=== PATIENT | female | born 1985 | race Caucasian/White ===

== ENCOUNTER → 2021-11-24 02:33 | Outpatient (CLI) | payer OTHER, SELFPAY ==
[2021-11-24 23:19] LABS: SARS-CoV-2 RNA PCR Negative
== END ==
PROVIDERS: PCP Internal Medicine; Visit Provider Nurse Practitioner
DX: J02.9 Acute pharyngitis, unspecified (principal); Z20.822 Contact with and (suspected) exposure to COVID-19
CPT/HCPCS: C9803; U0003; U0005

== ENCOUNTER 2022-05-01 16:51 | Outpatient (CLI) | payer OTHER, SELFPAY ==
[2022-05-01 17:36] LABS: Basophils Percent Auto 0.4 % (0.2-1.2); Eosinophils Absolute Auto 0.3 K/mm3 (0-0.3); Eosinophils Percent Auto 4.4 % (0-4.4); Hematocrit 40.6 % (37.0-47.0); Hemoglobin 13.4 g/dL (12.0-15.0); Immature Granulocyte Absolute 0.01 K/mm3 (0.00-0.031); Immature Granulocyte Percent A 0.1 % (0-0.5); Lymphocytes Absolute Auto 1.38 K/mm3 (0.9-3.2); Lymphocytes Percent Auto 19.7 % (18.3-44.2); Mean Corpuscular Hemoglobin 30.2 pg (26-34); Mean Corpuscular Volume 91.6 fl (80-100); Mean Platelet Volume 9.2 fl (7.4-10.4); Monocytes Absolute Auto 0.5 K/mm3 (0.1-0.6); Monocytes Percent Auto 7.4 % (2.6-8.5); Neutrophils Absolute Auto 4.8 K/mm3 (1.3-6.7); Platelet Count Result 325 k/mm3 (150-375); Red Blood Count 4.43 M/mm3 (4.2-5.4); Red Cell Distribution Width 12.9 % (11.5-14.5)
[2022-05-01 17:42] LABS: LDL Cholesterol Direct 86 mg/dL
[2022-05-01 18:59] LABS: Appearance Urine Clear (Clear); Bilirubin Urine Negative (Negative); Blood Urine 1+ (Negative); Color Urine Yellow (Yellow); Glucose Urine UA Negative (Negative); Ketones Urine 1+ mg/dL (Negative); Leukocyte Esterase Ur Negative LEU/UL (Negative); Nitrate Urine Negative (Negative); Protein Urine Negative (Negative); Specific Grav Ur <= 1.005 (1.001-1.035); Urobilinogen Urine 0.2 mg/dL (<2.0)
[2022-05-01 19:14] LABS: Mucus Urine Rare /lpf; RBC Urine 0-2 /hpf (0-2); Squamous Epithelial Cell Urine Rare /hpf (Few); WBC Urine 0-3 /hpf
[2022-05-01 19:16] LABS: Add Urine Microscopic? YES
[2022-05-01 20:18] LABS: Vitamin D 25 Hydroxy 39.5 ng/mL
[2022-05-01 20:47] LABS: Alanine Aminotransferase 70 U/L (6-35); Alkaline Phosphatase 60 U/L (38-126); Anion Gap 10 mmol/L (8-16); Aspartate Amino Transferase 28 U/L (14-36); Bilirubin,Total 0.6 mg/dL (0.2-1.3); Blood Urea Nitrogen 9 mg/dL (7-17); Calcium 9.7 mg/dL (8.4-10.2); Carbon Dioxide 24 mmol/L (22-30); Chloride 104 mmol/L (98-107); Cholesterol 182 mg/dL (0-200); Estimated Glomerular Filt Rate > 60; Glucose 86 mg/dL (65-110); HDL Direct 69 mg/dL; Potassium 3.7 mmol/L (3.4-5.0); Sodium 138 mmol/L (137-145); Triglycerides 52 mg/dL (<150)
[2022-05-01 20:54] LABS: Albumin Level 4.7 g/dL (3.5-5.1)
[2022-05-01 21:07] LABS: Hemoglobin A1C 4.9 % (<5.7)
== END 2022-05-01 16:52 | disposition home or self-care (01) ==
PROVIDERS: PCP Internal Medicine; Visit Provider Clinical Nurse Specialist
DX: R14.0 Abdominal distension (gaseous) (principal); E55.9 Vitamin D deficiency, unspecified; R73.09 Other abnormal glucose; Z13.220 Encounter for screening for lipoid disorders; Z13.228 Encounter for screening for other metabolic disorders
CPT/HCPCS: 36415; 80053; 80061; 81001; 82306; 83036; 85025

== ENCOUNTER 2022-05-02 12:25 | Outpatient (CLI) | payer OTHER, SELFPAY ==
[2022-05-02 13:21] LABS: Alanine Aminotransferase 69 U/L (6-35); Albumin Level 4.9 g/dL (3.5-5.1); Alkaline Phosphatase 67 U/L (38-126); Anion Gap 10 mmol/L (8-16); Aspartate Amino Transferase 40 U/L (14-36); Bilirubin,Total 0.5 mg/dL (0.2-1.3); Blood Urea Nitrogen 10 mg/dL (7-17); Calcium 9.9 mg/dL (8.4-10.2); Carbon Dioxide 25 mmol/L (22-30); Chloride 104 mmol/L (98-107); Estimated Glomerular Filt Rate > 60; Glucose 98 mg/dL (65-110); Potassium 4.1 mmol/L (3.4-5.0); Sodium 139 mmol/L (137-145)
[2022-05-02 13:50] LABS: Thyroid Stimulating Hormone 0.875 uIU/mL (0.465-4.680)
== END 2022-05-02 12:26 | disposition home or self-care (01) ==
PROVIDERS: PCP Internal Medicine; Visit Provider Clinical Nurse Specialist
DX: R74.01 Elevation of levels of liver transaminase levels (principal); F41.9 Anxiety disorder, unspecified
CPT/HCPCS: 36415; 80053; 84443

== ENCOUNTER 2022-05-06 14:02 | Outpatient (CLI) | payer OTHER, SELFPAY ==
[2022-05-06 15:09] LABS: Albumin Level 4.4 g/dL (3.5-5.1); Alkaline Phosphatase 184 U/L (38-126); Anion Gap 7 mmol/L (8-16); Aspartate Amino Transferase 127 U/L (14-36); Bilirubin,Total 0.3 mg/dL (0.2-1.3); Blood Urea Nitrogen 12 mg/dL (7-17); Calcium 8.9 mg/dL (8.4-10.2); Carbon Dioxide 30 mmol/L (22-30); Chloride 102 mmol/L (98-107); Estimated Glomerular Filt Rate > 60; Glucose 130 mg/dL (65-110); Potassium 3.9 mmol/L (3.4-5.0); Sodium 139 mmol/L (137-145)
[2022-05-06 15:10] LABS: Alanine Aminotransferase 769 U/L (6-35)
== END 2022-05-06 14:03 | disposition home or self-care (01) ==
LOC: ANHLAB 14:03
PROVIDERS: PCP Internal Medicine; Visit Provider Clinical Nurse Specialist
DX: R74.01 Elevation of levels of liver transaminase levels (principal)
CPT/HCPCS: 36415; 80053

== ENCOUNTER 2022-05-08 09:27 | Outpatient (CLI) | payer OTHER, SELFPAY ==
[2022-05-08 09:47] LABS: Appearance Urine Clear (Clear); Bilirubin Urine Negative (Negative); Blood Urine 1+ (Negative); Color Urine Yellow (Yellow); Glucose Urine UA Negative (Negative); Ketones Urine Negative (Negative); Leukocyte Esterase Ur Negative LEU/UL (Negative); Nitrate Urine Negative (Negative); Protein Urine Negative (Negative); Urobilinogen Urine 0.2 mg/dL (<2.0)
[2022-05-08 09:57] LABS: Mucus Urine Rare /lpf; Squamous Epithelial Cell Urine Rare /hpf (Few); WBC Urine 0-3 /hpf
[2022-05-08 09:58] LABS: Alanine Aminotransferase 432 U/L (6-35); Albumin Level 4.4 g/dL (3.5-5.1); Alkaline Phosphatase 145 U/L (38-126); Anion Gap 8 mmol/L (8-16); Aspartate Amino Transferase 78 U/L (14-36); Bilirubin,Total 0.4 mg/dL (0.2-1.3); Blood Urea Nitrogen 14 mg/dL (7-17); Calcium 9.2 mg/dL (8.4-10.2); Carbon Dioxide 27 mmol/L (22-30); Chloride 104 mmol/L (98-107); Estimated Glomerular Filt Rate > 60; Glucose 92 mg/dL (65-110); Potassium 4.1 mmol/L (3.4-5.0); Sodium 139 mmol/L (137-145)
[2022-05-08 10:09] LABS: Add Urine Microscopic? YES
== END 2022-05-08 09:28 | disposition home or self-care (01) ==
LOC: ANHLAB 09:28
PROVIDERS: PCP Internal Medicine; Visit Provider Clinical Nurse Specialist
DX: R74.01 Elevation of levels of liver transaminase levels (principal); R31.9 Hematuria, unspecified
CPT/HCPCS: 36415; 80053; 81001

== ENCOUNTER 2022-05-10 09:04 | Outpatient (CLI) | payer OTHER, SELFPAY ==
[2022-05-10 09:41] LABS: Alanine Aminotransferase 277 U/L (6-35); Albumin Level 4.5 g/dL (3.5-5.1); Alkaline Phosphatase 114 U/L (38-126); Anion Gap 7 mmol/L (8-16); Aspartate Amino Transferase 54 U/L (14-36); Bilirubin,Total 0.4 mg/dL (0.2-1.3); Blood Urea Nitrogen 14 mg/dL (7-17); Calcium 9.3 mg/dL (8.4-10.2); Carbon Dioxide 28 mmol/L (22-30); Chloride 103 mmol/L (98-107); Estimated Glomerular Filt Rate > 60; Glucose 87 mg/dL (65-110); Potassium 4.3 mmol/L (3.4-5.0); Sodium 138 mmol/L (137-145)
== END 2022-05-10 09:05 | disposition home or self-care (01) ==
LOC: ANHLAB 09:07
PROVIDERS: PCP Internal Medicine; Visit Provider Clinical Nurse Specialist
DX: R74.01 Elevation of levels of liver transaminase levels (principal)
CPT/HCPCS: 36415; 80053

== ENCOUNTER 2022-05-14 12:29 | Outpatient (CLI) | payer OTHER, SELFPAY ==
[2022-05-14 13:11] LABS: Alanine Aminotransferase 91 U/L (6-35); Albumin Level 4.2 g/dL (3.5-5.1); Alkaline Phosphatase 92 U/L (38-126); Anion Gap 7 mmol/L (8-16); Aspartate Amino Transferase 25 U/L (14-36); Bilirubin,Total 0.3 mg/dL (0.2-1.3); Blood Urea Nitrogen 9 mg/dL (7-17); Carbon Dioxide 27 mmol/L (22-30); Chloride 104 mmol/L (98-107); Estimated Glomerular Filt Rate > 60; Glucose 93 mg/dL (65-110); Potassium 4.1 mmol/L (3.4-5.0); Sodium 138 mmol/L (137-145)
== END 2022-05-14 12:30 | disposition home or self-care (01) ==
LOC: ANHLAB 12:30
PROVIDERS: PCP Internal Medicine; Visit Provider Clinical Nurse Specialist
DX: R74.01 Elevation of levels of liver transaminase levels (principal)
CPT/HCPCS: 36415; 80053

== ENCOUNTER 2022-05-15 09:03 | Outpatient (CLI) | payer OTHER, SELFPAY ==
--- NOTE | ~2022-05-15 | US_ITS ---
EXAMINATION: US right upper quadrant DATE: 05/15/2022 09:30 INDICATION: Right upper quadrant pain TECHNIQUE: Multiple grayscale and Doppler ultrasound images of the abdomen were obtained. COMPARISON: None available FINDINGS: The head and body of the pancreas are normal. The pancreatic tail is obscured by bowel gas. The liver is normal with normal echogenicity and echotexture. No surface nodularity. Normal hepatope manolo flow in the main portal vein. The gallbladder is normal with no abnormal wall thickening, pericho lecystic fluid or stones. The normal common bile duct measures 4 mm. There was no sonographic Richardson sign. IMPRESSION: 1. Normal sonographic study of the gallbladder. Reviewed, dictated and finalized at location B.
== END 2022-05-15 09:04 | disposition home or self-care (01) ==
PROVIDERS: PCP Internal Medicine; Visit Provider Clinical Nurse Specialist
DX: R10.11 Right upper quadrant pain (principal); R74.01 Elevation of levels of liver transaminase levels
CPT/HCPCS: 76705

== ENCOUNTER 2022-05-16 08:37 | Outpatient (CLI) | payer OTHER, SELFPAY ==
[2022-05-16 10:03] LABS: Alanine Aminotransferase 58 U/L (6-35); Albumin Level 4.4 g/dL (3.5-5.1); Alkaline Phosphatase 79 U/L (38-126); Anion Gap 6 mmol/L (8-16); Aspartate Amino Transferase 24 U/L (14-36); Bilirubin,Total 0.4 mg/dL (0.2-1.3); Blood Urea Nitrogen 12 mg/dL (7-17); Calcium 9.1 mg/dL (8.4-10.2); Carbon Dioxide 28 mmol/L (22-30); Chloride 105 mmol/L (98-107); Estimated Glomerular Filt Rate > 60; Glucose 95 mg/dL (65-110); Potassium 4.2 mmol/L (3.4-5.0); Sodium 139 mmol/L (137-145)
== END 2022-05-16 08:38 | disposition home or self-care (01) ==
LOC: ANHLAB 08:39
PROVIDERS: PCP Internal Medicine; Visit Provider Clinical Nurse Specialist
DX: R74.01 Elevation of levels of liver transaminase levels (principal)
CPT/HCPCS: 36415; 80053

== ENCOUNTER 2022-05-25 10:30 | Outpatient (CLI) | payer OTHER, SELFPAY ==
[2022-05-25 10:56] LABS: Basophils Percent Auto 0.4 % (0.2-1.2); Eosinophils Absolute Auto 0.2 K/mm3 (0-0.3); Hematocrit 40.3 % (37.0-47.0); Immature Granulocyte Absolute 0.01 K/mm3 (0.00-0.031); Immature Granulocyte Percent A 0.2 % (0-0.5); Lymphocytes Absolute Auto 1.38 K/mm3 (0.9-3.2); Mean Corpuscular HGB Conc 32.3 g/dl (32-36); Mean Corpuscular Hemoglobin 29.8 pg (26-34); Mean Corpuscular Volume 92.4 fl (80-100); Mean Platelet Volume 8.9 fl (7.4-10.4); Monocytes Absolute Auto 0.5 K/mm3 (0.1-0.6); Monocytes Percent Auto 9.6 % (2.6-8.5); Neutrophils Absolute Auto 2.9 K/mm3 (1.3-6.7); Neutrophils Percent Auto 58.8 % (45.5-73.1); Platelet Count Result 306 k/mm3 (150-375); Red Blood Count 4.36 M/mm3 (4.2-5.4); Red Cell Distribution Width 13.2 % (11.5-14.5); White Blood Count 4.9 K/mm3 (4.5-10.0)
[2022-05-25 11:08] LABS: Rheumatoid Factor < 8.6 IU/ML (<12)
[2022-05-25 11:09] LABS: Alanine Aminotransferase 25 U/L (6-35); Albumin Level 4.4 g/dL (3.5-5.1); Alkaline Phosphatase 57 U/L (38-126); Anion Gap 5 mmol/L (8-16); Aspartate Amino Transferase 22 U/L (14-36); Bilirubin,Total 0.6 mg/dL (0.2-1.3); Blood Urea Nitrogen 12 mg/dL (7-17); CRP < 0.5 mg/dL (<1.0); Carbon Dioxide 25 mmol/L (22-30); Chloride 107 mmol/L (98-107); Estimated Glomerular Filt Rate > 60; Glucose 90 mg/dL (65-110); Potassium 4.3 mmol/L (3.4-5.0); Sodium 137 mmol/L (137-145)
== END 2022-05-25 10:31 | disposition home or self-care (01) ==
LOC: ANHLAB 10:31
PROVIDERS: PCP Internal Medicine; Visit Provider Clinical Nurse Specialist
DX: R74.01 Elevation of levels of liver transaminase levels (principal); R42 Dizziness and giddiness; M35.3 Polymyalgia rheumatica
CPT/HCPCS: 36415; 80053; 84443; 85025; 86038; 86140; 86430

== ENCOUNTER 2022-05-29 09:47 | Outpatient (CLI) | payer OTHER, SELFPAY ==
[2022-05-29 12:13] LABS: Alanine Aminotransferase 21 U/L (6-35); Albumin Level 4.4 g/dL (3.5-5.1); Alkaline Phosphatase 60 U/L (38-126); Anion Gap 5 mmol/L (8-16); Aspartate Amino Transferase 28 U/L (14-36); Bilirubin,Total 0.5 mg/dL (0.2-1.3); Blood Urea Nitrogen 12 mg/dL (7-17); Calcium 9.6 mg/dL (8.4-10.2); Carbon Dioxide 26 mmol/L (22-30); Chloride 105 mmol/L (98-107); Estimated Glomerular Filt Rate > 60; Glucose 95 mg/dL (65-110); Potassium 4.1 mmol/L (3.4-5.0); Sodium 136 mmol/L (137-145)
== END 2022-05-29 09:48 | disposition home or self-care (01) ==
LOC: ANHGOSHLAB 09:49
PROVIDERS: PCP Internal Medicine; Visit Provider Clinical Nurse Specialist
DX: R74.01 Elevation of levels of liver transaminase levels (principal)
CPT/HCPCS: 36415; 80053

== ENCOUNTER → 2022-06-18 10:29 | Outpatient (CLI) | payer OTHER, SELFPAY ==
--- NOTE | ~2022-06-18 | MR_ITS ---
EXAMINATION: MR brain/brain stem wo con DATE: 06/18/2022 11:00 INDICATION: Dizziness. TECHNIQUE: Magnetic resonance imaging (MRI) of the brain and brainstem was performed without intraven ous contrast. COMPARISON: None. FINDINGS: There is no intracranial hemorrhage, acute infarction, or abnormal intracranial mass lesion . The ventricles are normal in size. There is mucosal thickening in the paranasal sinuses. The orbits are normal. The mastoid air cells are normal. IMPRESSION: 1. Normal brain. Reviewed, dictated and finalized at location A. IMPRESSION: 1. Normal brain.
== END ==
PROVIDERS: PCP Internal Medicine; Visit Provider Clinical Nurse Specialist
DX: R42 Dizziness and giddiness (principal)
CPT/HCPCS: 70551

== ENCOUNTER 2023-01-06 14:42 | Outpatient (CLI) | payer OTHER, SELFPAY ==
[2023-01-06 18:59] LABS: Alanine Aminotransferase 23 U/L (6-35); Albumin Level 4.5 g/dL (3.5-5.1); Alkaline Phosphatase 49 U/L (38-126); Anion Gap 6 mmol/L (8-16); Aspartate Amino Transferase 34 U/L (14-36); Bilirubin,Total 0.4 mg/dL (0.2-1.3); Blood Urea Nitrogen 10 mg/dL (7-17); Calcium 9.7 mg/dL (8.4-10.2); Carbon Dioxide 31 mmol/L (22-30); Chloride 100 mmol/L (98-107); Estimated Glomerular Filt Rate > 60; Glucose 117 mg/dL (65-110); Sodium 137 mmol/L (137-145)
[2023-01-06 19:35] LABS: Basophils Percent Auto 0.6 % (0.2-1.2); Eosinophils Absolute Auto 0.1 K/mm3 (0-0.3); Hematocrit 41.8 % (37.0-47.0); Hemoglobin 13.5 g/dL (12.0-15.0); Immature Granulocyte Absolute 0.02 K/mm3 (0.00-0.031); Immature Granulocyte Percent A 0.3 % (0-0.5); Lymphocytes Absolute Auto 1.77 K/mm3 (0.9-3.2); Lymphocytes Percent Auto 26.8 % (18.3-44.2); Mean Corpuscular HGB Conc 32.3 g/dl (32-36); Mean Corpuscular Hemoglobin 30.8 pg (26-34); Mean Corpuscular Volume 95.4 fl (80-100); Monocytes Absolute Auto 0.5 K/mm3 (0.1-0.6); Monocytes Percent Auto 6.8 % (2.6-8.5); Neutrophils Absolute Auto 4.2 K/mm3 (1.3-6.7); Neutrophils Percent Auto 63.5 % (45.5-73.1); Platelet Count Result 343 k/mm3 (150-375); Red Blood Count 4.38 M/mm3 (4.2-5.4); Red Cell Distribution Width 12.4 % (11.5-14.5); White Blood Count 6.6 K/mm3 (4.5-10.0)
== END 2023-01-06 14:43 | disposition home or self-care (01) ==
LOC: ANHGOSHLAB 14:43
PROVIDERS: PCP Internal Medicine; Visit Provider Clinical Nurse Specialist
DX: R74.01 Elevation of levels of liver transaminase levels (principal); F41.9 Anxiety disorder, unspecified; R73.9 Hyperglycemia, unspecified
CPT/HCPCS: 36415; 80053; 83036; 84443; 85025

== ENCOUNTER → 2023-01-09 08:28 | Outpatient (CLI) | payer OTHER, SELFPAY ==
--- NOTE | ~2023-01-09 | US_ITS ---
Limited Abdominal Sonogram: Real-time sonographic imaging of the right upper quadrant was performed. Clinical History: Right upper quadrant pain Findings: The liver appears normal with no evidence of mass lesion or bile duct dilatation. Main por manolo vein demonstrates normal direction of flow. The gallbladder is well distended, and appears normal with no evidence of gallstone or wall thickening. The common bile duct measures 4 mm. The visualize d pancreas, aorta, and IVC are unremarkable. Impression: No significant abnormality seen. Reviewed, dictated and finalized at location M. E WORKER HELPER Impression: No significant abnormality seen.
== END ==
PROVIDERS: PCP Internal Medicine; Visit Provider Clinical Nurse Specialist
DX: R10.11 Right upper quadrant pain (principal)
CPT/HCPCS: 76705

== ENCOUNTER 2023-01-28 09:29 | Outpatient (CLI) | payer OTHER, SELFPAY ==
[2023-01-28 19:11] LABS: Albumin Level 4.7 g/dL (3.5-5.1); Alkaline Phosphatase 52 U/L (38-126); Amylase 51 U/L (30-110); Anion Gap 8 mmol/L (8-16); Aspartate Amino Transferase 19 U/L (14-36); Bilirubin,Total 0.5 mg/dL (0.2-1.3); Blood Urea Nitrogen 14 mg/dL (7-17); Calcium 9.3 mg/dL (8.4-10.2); Carbon Dioxide 27 mmol/L (22-30); Chloride 104 mmol/L (98-107); Estimated Glomerular Filt Rate > 60; Glucose 89 mg/dL (65-110); HDL Direct 52 mg/dL; Lipase 58 U/L (23-300); Sodium 139 mmol/L (137-145); Triglycerides 71 mg/dL (<150)
[2023-01-28 21:08] LABS: Alanine Aminotransferase 20 U/L (6-35); Cholesterol 181 mg/dL (0-200); Potassium 4.6 mmol/L (3.4-5.0)
[2023-01-28 21:18] LABS: LDL Cholesterol Direct 91 mg/dL
[2023-02-04 17:58] LABS: Gliadin AB, IgG 50.3 U/mL (<15.0); TTG IGA AB 14.4 U/mL (<15.0)
== END 2023-01-28 09:30 | disposition home or self-care (01) ==
LOC: ANHGOSHLAB 09:31
PROVIDERS: PCP Internal Medicine; Visit Provider Clinical Nurse Specialist
DX: R74.01 Elevation of levels of liver transaminase levels (principal); R14.0 Abdominal distension (gaseous)
CPT/HCPCS: 36415; 80053; 80061; 82150; 83690; 86255; 86364

== ENCOUNTER 2023-02-27 08:19 | Outpatient (CLI) | payer OTHER, SELFPAY ==
--- NOTE | ~2023-02-27 | NM_ITS ---
EXAMINATION: NM hepatobiliary wo pharm DATE: 02/27/2023 10:39 INDICATION: Upper abdominal pain and back pain. COMPARISON: None. TECHNIQUE: 4.6 mCi Tc-99m mebrofenin (Choletec) was administered intravenously. Scintigraphic images of the abdomen were obtained for one hour. At the 1 hour time point, the patient drank 8 oz Ensure, and imaging was continued for 60 minutes. Gallbladder ejection fraction was calculated by the technol ogist. FINDINGS: There is normal clearance of radiotracer from the blood pool. There is homogeneous tracer u ptake by the liver. Activity progresses to the bowel and gallbladder. The gallbladder ejection fract ion (GBEF) is 100%. Note that with this technique, normal GBEF >= 33%. IMPRESSION: 1. Normal hepatobiliary scan. Reviewed, dictated and finalized at location A.
== END 2023-02-27 08:20 | disposition home or self-care (01) ==
PROVIDERS: PCP Clinical Nurse Specialist; Visit Provider Nurse Practitioner
DX: M54.9 Dorsalgia, unspecified (principal); R10.10 Upper abdominal pain, unspecified; R14.0 Abdominal distension (gaseous); R19.7 Diarrhea, unspecified
CPT/HCPCS: 78226; A9537

== ENCOUNTER 2023-03-01 07:47 | Outpatient (CLI) | payer OTHER, SELFPAY ==
[2023-03-07 17:35] LABS: Gliadin AB, IgG 43.6 U/mL (<15.0); TTG IGA AB 12.3 U/mL (<15.0)
== END 2023-03-01 07:48 | disposition home or self-care (01) ==
PROVIDERS: PCP Clinical Nurse Specialist; Visit Provider Nurse Practitioner
DX: R10.10 Upper abdominal pain, unspecified (principal); R19.7 Diarrhea, unspecified; R76.8 Other specified abnormal immunological findings in serum
CPT/HCPCS: 36415; 86003; 86008; 86255; 86364

== ENCOUNTER 2023-03-13 10:07 | Outpatient (NON) | payer OTHER, SELFPAY | END 2023-03-13 10:08 | disposition home or self-care (01) | LOC: ANHLAB 03-14 10:09 | PROVIDERS: PCP Clinical Nurse Specialist; Visit Provider Internal Medicine Gastroenterology | DX: R14.0 Abdominal distension (gaseous) (principal) | CPT/HCPCS: 88305 ==

== ENCOUNTER 2023-03-13 12:20 | Day surgery (SDC) | payer OTHER, SELFPAY ==
[2023-02-21 14:37] VITALS: BMI 28.9
[2023-03-03 13:12] VITALS: BMI 29.0
--- NOTE | 2023-03-12 13:29 | PM.HPGS ---
History of Present Illness History of Present Illness Consent: Risks, benefits, and alternatives have been discussed and questions answered. Patient agrees to proceed with procedure. Chief complaint: Dorsalgia Narrative: Kenia Blancas is a 37 year old female with several gastrointestinal issues. She did recently have testing for celiac disease and had a positive anti-gliadin antibody of 50. She has had upper abdominal pain that radiates to her shoulders. She has cut back on gluten and feels somewhat better. She also has frequent loose stools. She does not see blood in her stools. Review of Systems Review of Systems: All systems reviewed & are unremarkable except as noted in HPI and below PMFSH Past Medical History Medical History Acute hepatitis Allergies Anxiety Back pain Bloating Diarrhea IgG Gliadin antibody positive Upper abdominal pain Surgical History Surgical History History of appendectomy 2016 Family History Family History Father Hypertension Diabetes mellitus Grandparent Lung cancer Ovarian cancer Dementia Diabetes mellitus Leukemia Sibling Asthma Allergies Social History Social History Smoking status: Never smoker Alcohol intake: current Substance use: never Substance use type: does not use Lack of Transportation: No Lack of Food: Never True Current Housing: I Have Housing Concerned About Future Housing: No Difficulty Paying Gas/Electric Bills: No Difficulty Paying for Meds: No Currently Unemployed: No Education: Master's Degree or Higher Difficulty w/ Childcare or Family Care: No Living arrangements: with family Spiritual care concerns: No Meds Home Medications and Allergies Home Medications Medication Instructions Recorded Confirmed Type Saccharomyces boulardii 250 mg 5,000 mmu cells PO DAILY 02/06/23 03/13/23 History capsule (Digest Probiotic (S.boulardii)) docusate sodium 100 mg capsule 100 mg PO DAILY 02/06/23 03/13/23 History (Colace) omeprazole 20 mg capsule,delayed 20 mg PO BID #60 caps 02/06/23 03/13/23 Rx release dicyclomine 20 mg tablet 20 mg PO .every 6 hours PRN PRN 03/03/23 03/13/23 History Abdominal Discomfort Allergies Allergy/AdvReac Type Severity Reaction Status Date / Time No Known Allergies Allergy Verified 03/13/23 12:48 Exam Const: General: alert Orientation/consciousness: patient oriented x3 Resp: Auscultation: clear to auscultation bilaterally Cardio: Rhythm: regular rhythm GI: GI Palp: Yes Soft to palpation and No Tenderness to palpation present (GI) Neuro: General: patient oriented x3 Assessment and Plan Assessment and plan (1) IgG Gliadin antibody positive: Code(s): R76.8 - Other specified abnormal immunological findings in serum Status: Acute Assessment and Plan: EGD with possible biopsy or dilatation or cautery. (2) Right upper quadrant abdominal pain: Code(s): R10.11 - Right upper quadrant pain Status: Acute Assessment and Plan: EGD to be done
--- NOTE | 2023-03-13 11:53 | P.PNAN_ITS ---
Anes - Initial Pre Proc Eval Procedure: Operation Date: 03/13/23 14:00 Proposed Procedures p Esophagogastroduodenoscopy - Salas Rose MD Date/Time: 03/13/23 11:53 Surgeon: Salas Rose MD Pre Op Diagnosis: Dorsalgia Patient Data Age: 37 Gender: F Height: 1.75 m Weight: 89 kg Allergies Allergy/AdvReac Type Severity Reaction Status Date / Time No Known Allergies Allergy Verified 03/13/23 12:48 Home Medications Medication Instructions Recorded Confirmed Type Saccharomyces boulardii 250 mg 5,000 mmu cells PO DAILY 02/06/23 03/13/23 History capsule (Digest Probiotic (S.boulardii)) docusate sodium 100 mg capsule 100 mg PO DAILY 02/06/23 03/13/23 History (Colace) omeprazole 20 mg capsule,delayed 20 mg PO BID #60 caps 02/06/23 03/13/23 Rx release dicyclomine 20 mg tablet 20 mg PO .every 6 hours PRN PRN 03/03/23 03/13/23 Hist ory Abdominal Discomfort Patient hx anesthesia problems: none Family hx anesthesia problems: none Results Review: All pre-operative results and documents have been reviewed as part of the pre- operative evaluation. [facility] Past Medical History Medical History (Updated 02/06/23 @ 12:11 by Karley Baez APRN) Acute hepatitis Allergies Anxiety Back pain Bloating Diarrhea IgG Gliadin antibody positive Upper abdominal pain Surgical History Surgical History History of appendectomy 2015 Family History Family History Father Hypertension Diabetes mellitus Grandparent Lung cancer Ovarian cancer Dementia Diabetes mellitus Leukemia Sibling Asthma Allergies Social History Social History Smoking status: Never smoker Alcohol intake: current Substance use: never Substance use type: does not use Lack of Transportation: No Lack of Food: Never True Current Housing: I Have Housing Concerned About Future Housing: No Difficulty Paying Gas/Electric Bills: No Difficulty Paying for Meds: No Currently Unemployed: No Education: Master's Degree or Higher Difficulty w/ Childcare or Family Care: No Living arrangements: with family Spiritual care concerns: No Anes - Eval Final PreProcedure Day of Procedure 03/13/23 11:53 Patient weight: overweight Heart: regular rate and rhythm Lungs: clear to auscultation and normal air movement Airway: Mallampati scale class II Neurological: alert and oriented Last oral intake: >/= 8 hours ASA classification: II Emergent: no Anesthetic plan: proceed Anesthesia type and monitoring: general GIVS Results Review: All pre-operative results and documents have been reviewed as part of the pre- operative evaluation. Informed Consent: The patient's anesthetic plan and its attendant risks and benefits were discussed with the patient/family/POA. Questions were solicited and answers provided to the satisfaction of the patient/family/POA.
[2023-03-13 12:45] VITALS: BP 144/76; PULSE 83; RESP 20; TEMP 36.6; O2SAT 100
[2023-03-13] MEDS: LACTATED RINGERS 1,000 ML 150 ML IV CONT (12:58)
[2023-03-13 14:05] VITALS: BP 110/69; PULSE 93; RESP 18; O2SAT 100
[2023-03-13 14:15] VITALS: BP 122/75; PULSE 89; RESP 18; O2SAT 100
[2023-03-13 14:25] VITALS: BP 115/72; PULSE 90; RESP 18; O2SAT 100
--- NOTE | 2023-03-25 08:33 | WPDANESPN ---
Anes - Prog Note Post-Op Date/Time: 03/25/23 08:33 Cardiovascular status: normal Respiratory status: normal Airway patency: baseline Mental status: baseline Post-Op hydration status: normal Vital Signs: Last Vital Signs Temp 36.6 C 03/13/23 12:45 Pulse 90 03/13/23 14:25 Resp 18 03/13/23 14:25 BP 115/72 03/13/23 14:25 Pulse Ox 100 03/13/23 14:25 O2 Del Method Room Air 03/13/23 14:25 Pain Score (VAS): 0 Post-procedural complaints: none Patient Feedback: Patient satisfied with anesthetic care.
== END 2023-03-13 14:45 | disposition home or self-care (01) ==
PROVIDERS: PCP Clinical Nurse Specialist; Visit Provider Internal Medicine Gastroenterology
PROC: 0DJ08ZZ Inspection of Upper Intestinal Tract, Via Natural or Artificial Opening Endoscopic (ICD-10-PCS; CPT 43235; principal; 2023-03-13 14:00)
DX: R14.0 Abdominal distension (gaseous) (principal)
CPT/HCPCS: 43239

== ENCOUNTER 2023-03-25 11:20 | Outpatient (CLI) | payer OTHER, SELFPAY ==
[2023-03-29 11:55] LABS: Endomysial Ab (IgA) Screen Negative (Negative)
== END 2023-03-25 11:21 | disposition home or self-care (01) ==
LOC: ANHLAB 11:21
PROVIDERS: PCP Clinical Nurse Specialist; Visit Provider Nurse Practitioner
DX: R76.8 Other specified abnormal immunological findings in serum (principal); K90.0 Celiac disease
CPT/HCPCS: 36415; 86255

== ENCOUNTER 2023-12-23 08:52 | Outpatient (CLI) | payer OTHER, SELFPAY ==
--- NOTE | ~2023-12-23 | MMUS_ITS ---
EXAMINATION: MM diagnostic isac RT w jose, US axilla RT HISTORY: Pain in the upper outer quadrant of the right breast TECHNIQUE: Craniocaudal, mediolateral, and mediolateral oblique 3-D tomosynthesis images of the right breast were performed and synthetic 2-D images were generated. CAD analysis was submitted and interp reted. High resolution right axillary ultrasound was performed. COMPARISON: None, baseline BREAST PARENCHYMAL COMPOSITION: The breasts are extremely dense, which lowers the sensitivity of mamm ography. FINDINGS: MAMMOGRAPHIC FINDINGS: No suspicious mass, calcification, or architectural distortion are identified to suggest malignancy. No mammographic correlate is identified for the patient's reported right breast pain. ULTRASOUND: There is no evidence of focal abnormal solid or cystic mass in the vicinity of the patient's reported right breast pain. IMPRESSION: 1. No specific mammographic or sonographic correlate is identified for the patient's reported right b reast pain. Further evaluation at this time should be based on clinical assessment. Continued follow- up physical examination is recommended. 2. Recommend routine screening mammography beginning at age 40. BI-RADS Category 1: Negative Reviewed, dictated and finalized at location A. R SALES REP IMPRESSION: 1. No specific mammographic or sonographic correlate is identified for the stephanie ent's reported right breast pain. Further evaluation at this time should be bas ed on clinical assessment. Continued follow-up physical examination is recommen ded. 2. Recommend routine screening mammography beginning at age 40. BI-RADS Category 1: Negative
== END 2023-12-23 08:53 ==
PROVIDERS: PCP Clinical Nurse Specialist; Visit Provider Clinical Nurse Specialist
DX: N64.4 Mastodynia (principal); M79.621 Pain in right upper arm
CPT/HCPCS: 76882; 77061; 77065; G0279

== ENCOUNTER 2024-01-01 09:08 | Outpatient (CLI) | payer OTHER, SELFPAY ==
[2024-01-01 10:19] LABS: CRP < 0.5 mg/dL (<1.0)
[2024-01-01 10:21] LABS: Rheumatoid Factor < 12.0 IU/ML (<12)
[2024-01-01 10:46] LABS: Thyroid Stimulating Hormone 0.952 uIU/mL (0.465-4.680)
[2024-01-01 12:11] LABS: Erythrocyte Sedimentation Rate 25 mm/hr (0-20)
[2024-01-03 05:59] LABS: Thyroid Peroxidase Antibodies <1 IU/mL (<9)
[2024-01-06 11:42] LABS: ANA Cascade Screen Negative (Negative)
[2024-01-06 20:42] LABS: Lupus dRVVT Screen 43 sec (<=45); PTT-LA Screen 36 sec (<=40)
== END 2024-01-01 09:09 | disposition home or self-care (01) ==
PROVIDERS: PCP Clinical Nurse Specialist; Visit Provider Clinical Nurse Specialist
DX: M35.3 Polymyalgia rheumatica (principal); F41.9 Anxiety disorder, unspecified; R53.83 Other fatigue
CPT/HCPCS: 36415; 84443; 85613; 85652; 85730; 86038; 86140; 86225; 86235; 86364; 86376; 86430

== ENCOUNTER 2024-01-29 09:20 | Outpatient (CLI) | payer OTHER, SELFPAY ==
[2024-01-29 10:14] LABS: CRP < 0.5 mg/dL (<1.0)
[2024-01-29 10:41] LABS: Erythrocyte Sedimentation Rate 19 mm/hr (0-20)
[2024-02-03 03:16] LABS: Tissue Transglutaminase IgA Ab <1.0 U/mL (<15.0)
[2024-02-12 15:57] LABS: Gliadin Gluten IgA <1.0 U/mL
== END 2024-01-29 09:21 | disposition home or self-care (01) ==
LOC: ANHLAB 09:24
PROVIDERS: PCP Clinical Nurse Specialist; Referring Provider Clinical Nurse Specialist; Visit Provider Nurse Practitioner Family
DX: R70.0 Elevated erythrocyte sedimentation rate (principal); K90.0 Celiac disease
CPT/HCPCS: 36415; 85652; 86140; 86364

== ENCOUNTER 2024-06-10 09:04 | Outpatient (CLI) | payer OTHER, SELFPAY ==
[2024-06-10 09:35] LABS: Hematocrit 40.9 % (37.0-47.0); Hemoglobin 13.9 g/dL (12.0-15.0); Mean Corpuscular Hemoglobin 31.6 pg (26-34); Mean Platelet Volume 8.6 fl (7.4-10.4); Platelet Count Result 300 k/mm3 (150-375); Red Cell Distribution Width 12.1 % (11.5-14.5); White Blood Count 4.6 K/mm3 (4.5-10.0)
[2024-06-10 09:54] LABS: Alanine Aminotransferase 17 U/L (6-35); Albumin Level 4.6 g/dL (3.5-5.1); Alkaline Phosphatase 41 U/L (38-126); Anion Gap 8 mmol/L (4-12); Aspartate Amino Transferase 21 U/L (14-36); Bilirubin,Total 0.7 mg/dL (0.2-1.3); Blood Urea Nitrogen 11 mg/dL (7-17); Calcium 9.5 mg/dL (8.4-10.2); Carbon Dioxide 28 mmol/L (22-30); Chloride 102 mmol/L (98-107); Estimated Glomerular Filt Rate > 60; Glucose 87 mg/dL (65-110); Potassium 4.3 mmol/L (3.4-5.0); Sodium 138 mmol/L (137-145)
[2024-06-10 10:00] LABS: Iron 110 ug/dL (37-170)
[2024-06-10 10:09] LABS: Percent Iron Saturation 43 % (20-50)
[2024-06-10 10:54] LABS: Folic Acid 6.8 ng/mL (2.76->20)
[2024-06-14 11:32] LABS: Vitamin D 1,25 (OH)2 Total 28 pg/mL (18-72); Vitamin D2 1,25 (OH)2 <8 pg/mL; Vitamin D3 1,25 (OH)2 28 pg/mL
[2024-06-15 07:43] LABS: Reference Lab Test Name Gliadin IgA IgG
== END 2024-06-10 09:05 | disposition home or self-care (01) ==
LOC: ANHLAB 09:06
PROVIDERS: PCP Clinical Nurse Specialist; Visit Provider Nurse Practitioner
DX: K90.0 Celiac disease (principal)
CPT/HCPCS: 36415; 80053; 82607; 82652; 82728; 82746; 83540; 83550; 85027

== ENCOUNTER 2025-05-12 09:37 | Outpatient (CLI) | payer OTHER, SELFPAY ==
--- OUTSIDE RECORDS SUMMARY | 2025-05-12 09:41 | XMS_ITS | Encounter Summary ---
Author Organization [facility] Address [address] [place] [address] Care Team Providers Care Solaris Administrator Name Role Phone Ruth Garza MD Primary Care Provider [phone] Encounter Details Date Type Department Care Team (Late st Contact Info) Description 09/26/2000 Outpatient Historical [facility] Pediatrics - [facility] [address] [facility] [address] [phone] Ruth Garza MD [address] [facility] [address] [place], [place] [id number] Social History Tobacco Use Types Packs/Day Years Used Date Smoking Tobacco: Never Assessed Comments Unknown Sex and Gender Information Value Date Recorded Sex Assigned at Not on file 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
--- OUTSIDE RECORDS SUMMARY | 2025-05-12 09:41 | XMS_ITS | Encounter Summary ---
Author Organization [facility] Address [address] [place] [address] Care Team Providers Care Resource Coordinator Name Role Phone Ruth Garza MD Primary Care Provider [phone] Encounter Details Date Type Department Care Team (Late st Contact Info) Description 06/19/2000 Outpatient Historical [facility] Pediatrics - [facility] [address] [facility] [address] [id number] Margarita Díaz MD NO ADDRESS ON FILE Social History Tobacco Use Types Packs/Day Years Used Date Smoking Tobacco: Never Assessed Comments Unknown Sex and Gender Information Value Date Recorded Sex Assigned at Not on file 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
--- OUTSIDE RECORDS SUMMARY | 2025-05-12 09:41 | XMS_ITS | Encounter Summary ---
Author Organization [facility] Address [address] [place] [address] Care Team Providers Care Outcomes Manager Name Role Phone Ruth Garza MD Primary Care Provider [phone] Encounter Details Date Type Department Care Team (Latest Contact Info) Description 06/19/2000 Outpatient Historical [facility] Margarita Rodriguez MD NO ADDRESS ON FILE Injury, other and unspecified, knee, leg, ankle, and foot (Primary Dx) Social History Tobacco Use Types Packs/Day Years Used Date Smoking Tobacco: Never Assessed Comments Unknown Sex and Gender Information Value Date Recorded Sex Assigned at Not on file 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
--- OUTSIDE RECORDS SUMMARY | 2025-05-12 09:41 | XMS_ITS | Encounter Summary ---
Author Organization [facility] Address [address] [place] [address] Care Team Providers Care Impregnator And Drier Name Role Phone Ruth Garza MD Primary Care Provider [phone] Encounter Details Date Type Department Care Team (Late st Contact Info) Description 03/05/2002 Outpatient Historical [facility] Pediatrics - Medical [place] [address] [facility] [address] [phone] Ruth Garaz MD [address] [facility] [address] [place], [place] [id number] Social History Tobacco Use Types Packs/Day Years Used Date Smoking Tobacco: Never Assessed Comments Unknown Sex and Gender Information Value Date Recorded Sex Assigned at Not on file 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
--- OUTSIDE RECORDS SUMMARY | 2025-05-12 09:41 | XMS_ITS | Encounter Summary ---
Author Organization [facility] Address [address] [place] [address] Care Team Providers Care Chiropractic Neurologist Name Role Phone Ruth Garza MD Primary Care Provider [phone] Encounter Details Date Type Department Care Team (Late st Contact Info) Description 06/09/2001 Outpatient Historical [facility] Pediatrics - Medical [facility] [address] [facility] [address] [address] Howie Richmond MD [address] [employer] [facility] [address] [place] [address] Social History Tobacco Use Types Packs/Day Years Used Date Smoking Tobacco: Never Assessed Comments Unknown Sex and Gender Information Value Date Recorded Sex Assigned at Not on file 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 [facility] [address] [place] [address] PCP - General 10/19/02 documented as of this encounter
--- OUTSIDE RECORDS SUMMARY | 2025-05-12 09:41 | XMS_ITS | Encounter Summary ---
Author Organization [facility] Address [address] [place] [address] Care Team Providers Care Paper Conservator Name Role Phone Ruth Garza MD Primary Care Provider [phone] Encounter Details Date Type Department Care Team (Late st Contact Info) Description 04/29/2001 Outpatient Historical [facility] Pediatrics - [facility] [address] [facility] [address] [phone] Ruth Garza MD [address] 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 [facility] [address] [place] [address] PCP - General 10/19/02 documented as of this encounter
--- OUTSIDE RECORDS SUMMARY | 2025-05-12 09:41 | XMS_ITS | Encounter Summary ---
Author Organization [facility] Address [address] [place] [address] Care Team Providers Care Lining Mechanic Name Role Phone Ruth Garza MD Primary Care Provider [phone] Encounter Details Date Type Department Care Team (Late st Contact Info) Description 04/22/2002 Outpatient Historical [facility] Pediatrics - Medical [place] [address] [facility] [address] [phone] Ruth Garza MD [address] [facility] [address] [place], [place] [id number] Social History Tobacco Use Types Packs/Day Years Used Date Smoking Tobacco: Never Assessed Comments Unknown Sex and Gender Information Value Date Recorded Sex Assigned at Not on file 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
--- OUTSIDE RECORDS SUMMARY | 2025-05-12 09:41 | XMS_ITS | Encounter Summary ---
Author Organization [facility] Address [address] [place] [address] Care Team Providers Care Mosaic Tiler Name Role Phone Ruth Garza MD Primary Care Provider [phone] Encounter Details Date Type Department Care Team (Late st Contact Info) Description 05/23/2001 Outpatient Historical [facility] Pediatrics - Medical [facility] [address] [facility] [address] [address] Howie Richmond MD [address] [facility] [address] [place] [address] Social History Tobacco Use Types Packs/Day Years Used Date Smoking Tobacco: Never Assessed Comments Unknown Sex and Gender Information Value Date Recorded Sex Assigned at Not on file 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 [facility] [address] [place] [address] PCP - General 10/19/02 documented as of this encounter
--- OUTSIDE RECORDS SUMMARY | 2025-05-12 09:41 | XMS_ITS | Encounter Summary ---
Author Organization [facility] Address [address] [place] [address] Care Team Providers Care Crusher Operator Name Role Phone Ruth Garza MD Primary Care Provider [phone] Encounter Details Date Type Department Care Team (Late st Contact Info) Description 04/22/2002 Outpatient Historical [facility] Pediatrics - Medical [place] [address] [facility] [address] [phone] Ruth Garza MD [address] [facility] [address] [place], [place] [id number] Social History Tobacco Use Types Packs/Day Years Used Date Smoking Tobacco: Never Assessed Comments Unknown Sex and Gender Information Value Date Recorded Sex Assigned at Not on file 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
--- OUTSIDE RECORDS SUMMARY | 2025-05-12 09:42 | XMS_ITS | Encounter Summary ---
Author Organization [facility] Address [address] [place] [address] Care Team Providers Care Rn Emergency Name Role Phone Ruth Garza MD Primary Care Provider [phone] Encounter Details Date Type Department Care Team (Late st Contact Info) Description 03/04/2000 Outpatient Historical [facility] Pediatrics - [facility] [address] [facility] [address] [phone] Ruth Garza MD [address] [facility] [address] [place], [place] [id number] Social History Tobacco Use Types Packs/Day Years Used Date Smoking Tobacco: Never Assessed Comments Unknown Sex and Gender Information Value Date Recorded Sex Assigned at Not on file 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
--- OUTSIDE RECORDS SUMMARY | 2025-05-12 09:42 | XMS_ITS | Encounter Summary ---
Author Organization [facility] Address [address] [facility] Attn: [place] [address] Care Team Providers Care Baton Teacher Name Role Phone Ruth Garza MD Primary Care Provider Encounter Details Date Type Department Care Team (Late st Contact Info) Description 12/12/1997 Outpatient Historical Conversion, History Howie Richmond MD [address] [facility] [address], [place] [phone] Social History Tobacco Use Types Packs/Day Years Used Date Smoking Tobacco: Never Assessed Comments Unknown Sex and Gender Information Value Date Recorded Sex Assigned at Not on file 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 [address] [place] [address] PCP - General 10/19/02 documented as of this encounter
--- OUTSIDE RECORDS SUMMARY | 2025-05-12 09:42 | XMS_ITS | Encounter Summary ---
Author Organization [facility] Address [address] [place] [address] Care Team Providers Care Fisheries Specialist Name Role Phone Ruth Garza MD Primary Care Provider [phone] Encounter Details Date Type Department Care Team (Late st Contact Info) Description 04/30/2000 Outpatient Historical [facility] Pediatrics - [facility] [address] [facility] [address] [phone] Ruth Garza MD [address] [facility] [address] [place], [place] [id number] Social History Tobacco Use Types Packs/Day Years Used Date Smoking Tobacco: Never Assessed Comments Unknown Sex and Gender Information Value Date Recorded Sex Assigned at Not on file Legal Sex Female 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
--- OUTSIDE RECORDS SUMMARY | 2025-05-12 09:42 | XMS_ITS | Encounter Summary ---
Author Organization [facility] Address [address] [facility] Attn: [place] [address] Care Team Providers Care Health Care Coordinator Name Role Phone Ruth Garza MD Primary Care Provider [phone] Encounter Details Date Type Department Care Team (Late st Contact Info) Description 11/07/1989 Outpatient Historical Stoney Whitley MD NO ADDRESS ON FILE Social History Tobacco Use Types Packs/Day Years Used Date Smoking Tobacco: Never Assessed Comments Unknown Sex and Gender Information Value Date Recorded Sex Assigned at Not on file Legal Sex Female 3:51 AM SCIENTIFIC 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
--- OUTSIDE RECORDS SUMMARY | 2025-05-12 09:42 | XMS_ITS | Encounter Summary ---
Author Organization [facility] Address [address] [place] [address] Care Team Providers Care Music Mixer Name Role Phone Ruth Garza MD Primary Care Provider [phone] Encounter Details Date Type Department Care Team (Late st Contact Info) Description 01/07/2000 Outpatient Historical [facility] Pediatrics - [facility] [address] 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
--- OUTSIDE RECORDS SUMMARY | 2025-05-12 09:42 | XMS_ITS | Encounter Summary ---
Author Organization [facility] Address [address] [facility] Attn: [place] [address] Care Team Providers Care Carpenter Refrigerator Name Role Phone Ruth Garza MD Primary Care Provider [phone] Encounter Details Date Type Department Care Team (Late st Contact Info) Description 01/28/1991 Outpatient Historical Ruth Garza MD [address] [facility] [address] [address] Social History Tobacco Use Types Packs/Day Years Used Date Smoking Tobacco: Never Assessed Comments Unknown Sex and Gender Information Value Date Recorded Sex Assigned at Not on file Legal 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
--- OUTSIDE RECORDS SUMMARY | 2025-05-12 09:42 | XMS_ITS | Encounter Summary ---
Author Organization [facility] Address [address] [place] [address] Care Team Providers Care International Recruiter Name Role Phone Ruth Garza MD Primary Care Provider [phone] Encounter Details Date Type Department Care Team (Late st Contact Info) Description 10/19/2002 Outpatient Historical [facility] Pediatrics - Medical [place] [address] [facility] [address] [address] Ruth Garza MD [address] [facility] [address] [place], [place] [id number] Social History Tobacco Use Types Packs/Day Years Used Date Smoking Tobacco: Never Assessed Comments Unknown Sex and Gender Information Value Date Recorded Sex Assigned at Not on file Legal Sex Female 3:51 AM SEAM SEWER Gender Identity Not on file Sexual Orientation Not on file documented as of this encounter Plan of Treatment Not on file documented as of this encounter Visit Diagnoses Not on filedocumented in this encounter Care Teams International Recruiter Relationship Specialty Start Date End Date Ruth Garza MD [address] [facility] [address] [place] [address] PCP - General 10/19/02 documented as of this encounter
--- OUTSIDE RECORDS SUMMARY | 2025-05-12 09:42 | XMS_ITS | Encounter Summary ---
Author Organization [employer] Address [address] [place] [address] Care Team Providers Care Care Clinician Name Role Phone Ruth Garza MD Primary Care Provider [phone] Encounter Details Date Type Department Care Team (Late st Contact Info) Description 10/17/2003 Outpatient Historical [facility] Sandor Zepeda MD [address] [facility] [address] [place], [place] [phone] Er, Authorized P NO ADDRESS ON FILE OPEN WOUND OF LIP (Primary Dx) Social History Tobacco Use Types Packs/Day Years Used Date Smoking Tobacco: Never Assessed Comments Unknown Sex and Gender Information Value Date Recorded Sex Assigned at Not on file Legal Sex Female 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
--- OUTSIDE RECORDS SUMMARY | 2025-05-12 09:42 | XMS_ITS | Encounter Summary ---
Author Organization [facility] Address [address] [place] [address] Care Team Providers Care Bulbs Farmworker Name Role Phone Ruth Garza MD Primary Care Provider [phone] Encounter Details Date Type Department Care Team (Latest Contact Info) Description 01/07/2000 Outpatient Historical [facility] Ruth Dinh MD [address] [facility] [address], [place] [address] Injury, other and unspecified, knee, leg, ankle, and foot (Primary Dx) Social History Tobacco Use Types Packs/Day Years Used Date Smoking Tobacco: Never Assessed Comments Unknown Sex and Gender Information Value Date Recorded Sex Assigned at Not on file Legal Sex Female 3:51 AM RN OBGYN Gender Identity Not on file Sexual Orientation Not on file documented as of this encounter Plan of Treatment Not on file documented as of this encounter Visit Diagnoses Diagnosis Injury, other and unspecified, knee, leg, ankle, and foot- Primary documented in this encounter Care Teams Bulbs Farmworker Relationship Specialty Start Date End Date Ruth Garza MD [address] [facility] [address], [place] [address] PCP - General 10/19/02 documented as of this encounter
--- OUTSIDE RECORDS SUMMARY | 2025-05-12 09:42 | XMS_ITS | Encounter Summary ---
Author Organization [facility] Address [address] [place] [address] Care Team Providers Care Commercial Print Salesman Name Role Phone Ruth Garza MD Primary Care Provider [phone] Encounter Details Date Type Department Care Team (Late st Contact Info) Description 10/18/1999 Outpatient Historical [facility] Pediatrics - [facility] [address] [facility] [address] [phone] Ruth Garza MD [address] [facility] [address] [place], [place] [id number] Social History Tobacco Use Types Packs/Day Years Used Date Smoking Tobacco: Never Assessed Comments Unknown Sex and Gender Information Value Date Recorded Sex Assigned at Not on file Legal 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
--- OUTSIDE RECORDS SUMMARY | 2025-05-12 09:42 | XMS_ITS | Encounter Summary ---
Author Organization [facility] Address [address] [place] [address] Care Team Providers Care Freight Associate Name Role Phone Ruth Garza MD Primary Care Provider [phone] Encounter Details Date Type Department Care Team (Late st Contact Info) Description 06/25/2004 Outpatient Historical [facility] Pediatrics - Medical [place] [address] [facility] [address] [phone] Ruth Garza MD [address] [facility] [address] [place], [place] [id number] Social History Tobacco Use Types Packs/Day Years Used Date Smoking Tobacco: Never Assessed Comments Unknown Sex and Gender Information Value Date Recorded Sex Assigned at Not on file Legal Sex Female 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
--- OUTSIDE RECORDS SUMMARY | 2025-05-12 09:42 | XMS_ITS | Referral Summary ---
Author Organization [facility] Address [address] [place] [address] Care Team Providers Care Bridge Attacher Name Role Phone Vanessa Hernandez MD Unavailable [phone] Carmen Forbes NP Primary Care Provider [phone] Allergies Active Allergy Reactions Criticality Noted Date Comments Gluten Nausea only Low 01/26/2024 Medications omeprazole (PriLOSEC) 20 mg capsule 01/07/20 23 Active ofloxacin (OCUFLOX) 0.3 % ophthalmic solution 02/18/20 23 Active docusate sodium (COLACE) 250 mg capsule Take 1 capsule (250 mg total) by mouth daily Active Lactobacillus acidophilus 10 billion cell capsule Take by mouth Active diazePAM (VALIUM) 10 mg tablet Take one upon arrival at Radiology center; may repeat once, if needed. 2 tablet 03/10/20 23 Active Additional Information Patient not taking.Reported on 10/16/2024 Dialyvite Vitamin D3 Max 1,250 mcg (50,000 unit) tablet Take 1 tablet (50,000 Units total) by mouth 10/30/20 23 Active cyanocobalamin (Vitamin B-12) 1,000 mcg/mL injection 08/04/20 24 Active fluoride, sodium, 1.1 % paste 05/24/20 24 Active valACYclovir (VALTREX) 1 gram tablet 05/31/20 24 Active fluticasone propionate (FLONASE) 50 mcg/actuation nasal sprayIndications:Ac roland nasopharyngitis Administer 2 sprays into each nostril daily 1 each 08/17/20 24 Active Additional Information Patient not taking.Reported on 10/16/2024 Active Problems Problem Noted Date Diagnosed Date Celiac disease 10/18/2023 Elevated liver function tests 03/10/2023 Assessment & Plan (03/10/2023 4:07 PM CDT): Ms. Blancas presents for history of elevated liver enzymes with a hepatobiliary pattern during an exposure to a recalled food product, in which have now normalized. However, it is possible patient had an uprelated acute episode of cholecystitis. Recommend MRI/MRCP for further evaluation of bile ducts or presence of stones. Patient to follow up with local GI for endoscopy and workup for celiac. Patient to follow up as needed. Multiple benign melanocytic nevi of upper and lower extremities and trunk 08/27/2022 Seborrheic keratosis 08/27/2022 Solar lentiginosis 08/27/2022 Verruca vulgaris 08/27/2022 Acute appendicitis 04/21/2016 Resolved Problems Problem Noted Date Diagnosed Date Resolved Date Rupture of membranes with delay of delivery 08/19/2021 03/10/2023 Immunizations Immunization Administration Dates Next Due Influenza, Unspecified 08/07/2021 Social History Tobacco Use Types Packs/Day Years Used Date Smoking Tobacco: Never Smokeless Tobacco: Never AUDIT-C Answer Date Recorded Q1: How often do you have a drink containing alc ohol? Monthly or less 03/10/2023 Average Number of Drinks Not on file 023 Frequency of Binge Drinking Not on file 11/2022 [place] Depression Scale Answer Date Recorded [place] Depression Scale Total 6 08/21/2021 The thought of harming myself has occurred to me . Never 08/21/2021 Personal Safety Answer Date Recorded Have you ever been in or are you currently in a harmful physical or emotional relationship or is someone making you feel afraid or unsafe? 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 [employer] Not on file Not on file Not on file Last Filed Vital Signs Vital Sign Reading Time Taken Comments Blood Pressure 112/76 10/16/2024 9:22 AM INSIDE SALES PROFESSIONAL Pulse 81 10/16/2024 9:22 AM INSIDE SALES PROFESSIONAL Temperature 36.9 C (98.5 F) 10/16/2024 9:22 AM INSIDE SALES PROFESSIONAL Respiratory Rate 16 10/16/2024 9:22 AM INSIDE SALES PROFESSIONAL Oxygen Saturation 99% 10/16/2024 9:22 AM INSIDE SALES PROFESSIONAL Inhaled Oxygen Concentration - - Weight 89.7 kg (197 lb 11.2 oz) 10/16/2024 9:22 AM INSIDE SALES PROFESSIONAL Height 175.3 cm (5' 9) 10/16/2024 9:22 AM INSIDE SALES PROFESSIONAL Body Mass Index 29.2 10/16/2024 9:22 AM INSIDE SALES PROFESSIONAL Plan of Treatment Not on file Procedures Procedure Name Priority Date/Time Associated Diagnosis Comments HEPATITIS PANEL, ACUTE STAT 05/03/2022 12:31 PM CDT from Last 3 Months or Most Recently Relevant to Health Maintenance Results * Hepatitis panel, acute (05/03/2022 12:31 PM CDT) Hep A IgM Nonreactive Nonreactive [facility] Comment: Interpretive Data: If Hep A IgM Ab is reported as Equivocal, a new sample should be drawn in two weeks for testing. Current interpretive data was last revised on 20. Hep B core IgM Nonreactive Nonreactive [facility] Comment: Interpretive Data If HepB Core IgM Ab is reported as Equivocal, a new sample should be drawn in two weeks for testing. Current interpretive data was last revised on 20. Hep C Ab Nonreactive Nonreactive [facility] Comment: Interpretive Data Nonreactive: Antibodies to HCV not detected. Does NOT exclude the possibility of recent exposure to HCV. Equivocal: Equivocal for HCV antibodies. Supplemental molecular testing will be automatically performed to determine infection status in accordance with current CDC screening recommendations. Reactive: Positive for HCV antibodies. This may represent current or past HCV infection. Supplemental molecular testing will be automatically performed to determine current infection status in accordance with current CDC screening recommendations. Interpretive data was last revised on 2020. HepBsAg Nonreactive Nonreactive [facility] Blood 05/03/2022 12:3 1 PM CDT 05/03/2022 12:42 PM CDT us Rebecca [facility] MICROBIOLOGY - GENE RAL ORDERABLES Final Result [facility] [address] [place] [address] from Last 3 Months or Most Recently Relevant to Health Maintenance Insurance [facility] H[facility]/PPO Address: [id number] [place] [address] [facility] [facility] H[facility]/PPO Address: [id number] [place] [address] [facility] HMO/PPO Address: [address] [address] [place] [address] [facility] H[facility]/PPO Address: [address] [address] [place] [address] Advance Directives For more information, please contact: [phone] * Full Code (Latest Code Status on File) Date Activated Date Inactivated Comments 08/19/2021 10:22 PM 08/21/2021 6:37 PM * Full Code Date Activated Date Inactivated Comments 08/19/2021 2:33 PM 08/19/2021 10:21 PM Full CPR in case of cardiopulmonary arrest Care Teams Bridge Attacher Relationship Specialty Start Date End Date Carmen Forbes PRESSURIZATION MECHANIC [facility] [address] [address] PCP - General Cardiovascular Disease 11/12/23 Vanessa Hernandez MD Consulting Physician Obstetrics and Gynecology 08/20/21
--- OUTSIDE RECORDS SUMMARY | 2025-05-12 09:42 | XMS_ITS | Encounter Summary ---
Author Organization [facility] Address [address] [place] [address] Care Team Providers Care Senior Ui Ux Designer Name Role Phone Ruth Garza MD Primary Care Provider [phone] Encounter Details Date Type Department Care Team (Late st Contact Info) Description 05/28/2000 Outpatient Historical [facility] Pediatrics - [facility] [address] [facility] [address] [phone] Ruth Garza MD [address] [facility] [address] [place], [place] [id number] Social History Tobacco Use Types Packs/Day Years Used Date Smoking Tobacco: Never Assessed Comments Unknown Sex and Gender Information Value Date Recorded Sex Assigned at Not on file Legal Sex Female 3:51 AM PERLITE GRINDER Gender Identity Not on file Sexual Orientation Not on file documented as of this encounter Plan of Treatment Not on file documented as of this encounter Visit Diagnoses Not on filedocumented in this encounter Care Teams Senior Ui Ux Designer Relationship Specialty Start Date End Date Ruth Garza MD [address] [facility] [address] [place] [address] PCP - General 10/19/02 documented as of this encounter
--- OUTSIDE RECORDS SUMMARY | 2025-05-12 09:42 | XMS_ITS | Encounter Summary ---
Author Organization 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
--- OUTSIDE RECORDS SUMMARY | 2025-05-12 09:42 | XMS_ITS | Encounter Summary ---
Author Organization [facility] Address [address] [place] [address] Care Team Providers Care Cargoman Name Role Phone Ruth Garza MD Primary Care Provider Encounter Details Date Type Department Care Team (Late st Contact Info) Description 05/02/2003 Outpatient Historical [facility] Pediatrics - Medical [place] [address] [facility] [address] [address] Ruth Garza MD [address] [facility] [address] [place] [address] Social History Tobacco Use Types Packs/Day Years Used Date Smoking Tobacco: Never Assessed Comments Unknown Sex and Gender Information Value Date Recorded Sex Assigned at Not on file Legal Sex Female 3:51 AM CONTROL SUPERVISOR Gender Identity Not on file Sexual Orientation Not on file documented as of this encounter Plan of Treatment Not on file documented as of this encounter Visit Diagnoses Not on filedocumented in this encounter Care Teams Cargoman Relationship Specialty Start Date End Date Ruth Garza MD [address] [facility] [address] [place] [address] PCP - General 10/19/02 documented as of this encounter
--- OUTSIDE RECORDS SUMMARY | 2025-05-12 09:42 | XMS_ITS | Clinical Summary ---
Author Organization [facility] Address [address] [place] [address] Care Team Providers Care Business Writer Name Role Phone Vanessa Hernandez MD Unavailable [phone] Carmen Forbes NP Primary Care Provider [phone] Allergies Active Allergy Reactions Criticality Noted Date [...] Administration Dates Next Due Influenza, Unspecified 08/07/2021 Surgical History Surgery Date Site/Laterality Comments APPENDECTOMY 11/10/2015 - 11/09/2016 WISDOM TOOTH EXTRACTION Medical History Medical History Date Comments Diabetes mellitus (HCC) GDM Mental disorder Rupture of membranes with delay of delivery 08/10 Acute appendicitis Family History Medical History Relation Name Comments Asthma Brother Eczema Mother Relation Name Status Comments Brother Mother Social History Tobacco Use Types Packs/Day Years Used Date Smoking Tobacco: Never Smokeless Tobacco: Never AUDIT-C Answer Date Recorded Q1: How often do you have a drink containing alc ohol? 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 Not on file Not on file Not on file Obstetrics History Para Term AB IAB SAB Ectopic Multiple Livin g Live Births 3 2 1 1 1 0 2 2 Date Outcome GA Total Labor Labor/2nd/3rd Weight Sex Type Anes PTL Betsy A1 A5 Name Clin 8 SAB 2018 Para 3.572 kg (7 lb 14 oz) F Vag-S pont Epidur al N Livin g Complications:Gestational di abetes Delivery Location:Other 2020 Term 37w 4d 0h 29m 0h 22m/0h 07m 3.26 kg (7 lb 3 oz) F Vag-S pont Epidur al N Livin g 8 9 TIPTO N,LAMBERT VARGAS E Caryl g, Vanessa Mcdonald MD Delivery Location:[facility] Last Filed Vital Signs Vital Sign Reading Time Taken Comments Blood Pressure 112/76 10/16/2024 9:22 AM LAMP MECHANIC Pulse 81 10/16/2024 9:22 AM LAMP MECHANIC Temperature 36.9 C (98.5 F) 10/16/2024 9:22 AM LAMP MECHANIC Respiratory Rate 16 10/16/2024 9:22 AM LAMP MECHANIC Oxygen Saturation 99% 10/16/2024 9:22 AM LAMP MECHANIC Inhaled Oxygen Concentration - - Weight 89.7 kg (197 lb 11.2 oz) 10/16/2024 9:22 AM LAMP MECHANIC Height 175.3 cm (5' 9) 10/16/2024 9:22 AM LAMP MECHANIC Body Mass Index 29.2 10/16/2024 9:22 AM LAMP MECHANIC Plan of Treatment Health Maintenance Due Date Last Done Comments Cervical Cancer Screening 1986 Varicella Vaccines (1 of 2 - 13+ 2-dose series) 1999 Hepatitis B Screening 2004 Regular Well Visit/Exam 18-64 2004 Depression Screening 08/21/2022 08/21/2021 Influenza Vaccine (Season Ended) 2025 08/27/2022, 08/07/2021, 11/23/2020, Additional history exists DTaP/Tdap/Td Vaccine (3 - Td or Tdap) 01/21/2029 01/21/2019, 05/04/2014 Hepatitis C Screening Completed 05/03/2022 HPV Vaccines Aged Out No longer eligi ble based on patient's age to complete this topic Pneumococcal vaccine <65 Aged Out No longer eligible based on patient's age to complete this topic Procedures Procedure Name Priority Date/Time Associated Diagnosis Comments HEPATITIS PANEL, ACUTE STAT 05/03/2022 12:31 PM CDT from Last 3 Months or Most Recently Relevant to Health Maintenance Results * Hepatitis panel, acute (05/03/2022 12:31 PM CDT) Hep A IgM Nonreactive Nonreactive [facility] Comment: Interpretive Data: If Hep A IgM Ab is reported as Equivocal, a new sample should be drawn in two weeks for testing. Current interpretive data was last revised on 20. Hep B core IgM Nonreactive Nonreactive [facility] Comment: Interpretive Data If HepB Core IgM Ab is reported as Equivocal, a new sample should be drawn in two weeks for testing. Current interpretive data was last revised on 20. Hep C Ab Nonreactive Nonreactive [facility] Comment: Interpretive Data Nonreactive: Antibodies to HCV [...] last revised on 2020. HepBsAg Nonreactive Nonreactive [facility] Blood 05/03/2022 12:3 1 PM CDT 05/03/2022 12:42 PM CDT us Rebecca [facility] MICROBIOLOGY - GENE RAL ORDERABLES Final Result [facility] [address] Department [place] [address] from Last 3 Months or Most Recently Relevant to Health Maintenance Insurance [employer] Advance Directives For more information, please contact: [phone] * Full Code (Latest Code Status on File) Date Activated Date Inactivated Comments 08/19/2021 10:22 PM 08/21/2021 6:37 PM * Full Code Date Activated Date Inactivated Comments 08/19/2021 2:33 PM 08/19/2021 10:21 PM Full CPR in case of cardiopulmonary arrest Care Teams Business Writer Relationship Specialty Start Date End Date Carmen Forbes MEASURING MACHINE OPERATOR [facility] [address] [address] PCP - General Cardiovascular Disease 11/12/23 Vanessa Hernandez MD Consulting Physician Obstetrics and Gynecology 08/20/21
--- OUTSIDE RECORDS SUMMARY | 2025-05-12 09:42 | XMS_ITS | Encounter Summary ---
Author Organization [facility] Address [address] [place] [address] Care Team Providers Care Roll Press Operator Name Role Phone Ruth Garza MD Primary Care Provider [phone] Encounter Details Date Type Department Care Team (Latest Contact Info) Description 10/12/1998 Outpatient Historical [facility] Ruth Dinh MD [address] [facility] [address], [place] [address] Injury, other and unspecified, finger (Primary Dx) Social History Tobacco Use Types Packs/Day Years Used Date Smoking Tobacco: Never Assessed Comments Unknown Sex and Gender Information Value Date Recorded Sex Assigned at Not on file Legal Sex Female 3:51 AM DIRECTOR OF SPORTS MEDICINE Gender Identity Not on file Sexual Orientation Not on file documented as of this encounter Plan of Treatment Not on file documented as of this encounter Visit Diagnoses Diagnosis Injury, other and unspecified, finger- Primary documented in this encounter Care Teams Roll Press Operator Relationship Specialty Start Date End Date Ruth Garza MD [address] [facility] [address], [place] [address] PCP - General 10/19/02 documented as of this encounter
--- OUTSIDE RECORDS SUMMARY | 2025-05-12 09:42 | XMS_ITS | Clinical Summary ---
Author Organization [facility] Address [address] [facility] Attn: Epic Prelude ADT [place] [address] Care Team Providers Care Cloth Baler Name Role Phone Ruth Garza MD Primary Care Provider [phone] Social History Tobacco Use Types Packs/Day Years Used Date Smoking Tobacco: Never Assessed Comments Unknown Sex and Gender Information Value Date Recorded Sex Assigned at Not on file Legal Sex Female 3:51 AM TAX ADJUSTER Gender Identity Not on file Sexual Orientation Not on file Plan of Treatment Health Maintenance Due Date Last Done Comments DTAP/TDAP/TD VACCINES (1 - Tdap) 2005 HEPATITIS B VACCINES (1 of 3 - 19+ 3-dose series) 2005 HPV/Cotest (21-29) 2007 CERVICAL CANCER SCREENING 2016 HPV/Cotest (30-65) 2016 PAP SMEAR 2016 INFLUENZA VACCINE (#1) 2024 HPV VACCINES Aged Out No longer eligi ble based on patient's age to complete this topic Care Teams Cloth Baler Relationship Specialty Start Date End Date Ruth Garza MD [address] [place] [id number] PCP - General 10/19/02
--- OUTSIDE RECORDS SUMMARY | 2025-05-12 09:42 | XMS_ITS | Encounter Summary ---
Author Organization [employer] [facility] Address [address] [place] [address] Care Team Providers Care Liner Installer Name Role Phone Ruth Garza MD Primary Care Provider [phone] Encounter Details Date Type Department Care Team (Latest Contact Info) Description 10/19/2002 Outpatient Historical [facility], [address] Ruth Garza MD [address] [facility] [address], [place] [address] ACUTE PHARYNGITIS (Primary Dx) Social History Tobacco Use Types Packs/Day Years Used Date Smoking Tobacco: Never Assessed Comments Unknown Sex and Gender Information Value Date Recorded Sex Assigned at Not on file Legal Sex Female 3:51 AM JACKHAMMER OPERATOR Gender Identity Not on file Sexual Orientation Not on file documented as of this encounter Plan of Treatment Not on file documented as of this encounter Visit Diagnoses Diagnosis Acute pharyngitis- Primary documented in this encounter Care Teams Liner Installer Relationship Specialty Start Date End Date Ruth Garza MD [address] [facility] [address], [place] [address] PCP - General 10/19/02 documented as of this encounter
--- OUTSIDE RECORDS SUMMARY | 2025-05-12 09:42 | XMS_ITS | Clinical Summary ---
Author Organization [facility] Address [address] [place] [address] Care Team Providers Care Carton Forming Machine Helper Name Role Phone Mirian Wiggins LANA-TEARER PRESS CLIPPING Primary Care Provider [phone] Source Comments [facility],non-owned Affiliates and Associated Physician Practices is amultiple site organization consisting of ambulatory clinics and hospital sitesin [place], [place], [place] and [place]. This disclosure is being madepursuant to the Care Everywhere program and may not contain all information available regarding this patient. Last updated 18.[facility] Allergies No known active allergies Medications * Be aware that medications may not be up to date on this document. Alwaysverify current medications with the patient. HYDROcodone-ac etaminophen (NORCO) 5-325 MG tablet Take 1-2 Tabs by mouth every 4 hours as needed for Pain Do not exceed 3 grams of acetaminophen (TYLENOL) daily. 30 tablet 0 6 Active valACYclovir (Valtrex) 1 GM tablet Take 2 (two) tablets by mouth every 12 hours Start day of procedure and second dose 12 hours later 12 tablet 3 4 Active Active Problems Problem Noted Date Diagnosed Date Multiple benign melanocytic nevi of upper and lower extremities and trunk 08/27/2022 Solar lentiginosis 08/27/2022 Seborrheic keratosis 08/27/2022 Verruca vulgaris 08/27/2022 Acute appendicitis 04/21/2016 Immunizations Immunization Administration Dates Next Due INFLUENZA VACCINE 08/27/2022,08/07/2021 Family History Medical History Relation Name Comments Asthma Brother Cancer - Other Maternal Grandfather Cancer - Other Maternal Grandmother Eczema Mother Asthma Other Cancer - Other Paternal Grandfather Cancer - Other Paternal Grandmother Relation Name Status Comments Brother Maternal Grandfather Maternal Grandmother Mother Other Paternal Grandfather Paternal Grandmother Social History Tobacco Use Types Packs/Day Years Used Date Smoking Tobacco: Never Smokeless Tobacco: Never Tobacco Cessation:Counseling Given: Not Answered Alcohol Use Standard Drinks/Week Comments Never 0 (1 standard drink = 0.6 oz pur e alcohol) Comments Unknown Sex and Gender Information Value Date Recorded Sex Assigned at Not on file Legal Sex Female 1:08 PM CDT Gender Identity Not on file Sexual Orientation Not on file Last Filed Vital Signs Vital Sign Reading Time Taken Comments Blood Pressure 119/72 04/22/2016 12:55 PM CDT Pulse 102 04/22/2016 12:55 PM CDT Temperature 36.7 C (98 F) 04/22/2016 12:55 PM CDT Respiratory Rate 16 04/22/2016 12:55 PM CDT Oxygen Saturation 99% 04/22/2016 12:55 PM CDT Inhaled Oxygen Concentration - - Weight - - Height - - Body Mass Index - - Plan of Treatment Health Maintenance Due Date Last Done Comments DTAP/TDAP/TD VACCINES (1 - Tdap) 2005 HEPATITIS B VACCINE (1 of 3 - 19+ 3-dose series) 2005 COVID-19 VACCINE ( - 2023-2 5 season) 2024 DEPRESSION SCREENING 11/10/2024 INFLUENZA VACCINE (#1) 2025 , 08/07/2021 PAP SMEAR 08/05/2026 08/05/2023, 08/05/2023 ZOSTER VACCINE (1 of 2) 2036 HIV SCREENING Completed 02/08/2021 HEPATITIS C SCREENING Completed 05/03/2022 , 02/08/2021, 02/08/2021 HIB VACCINE Aged Out No longer eligi ble based on patient's age to complete this topic HPV VACCINE Aged Out No longer eligi ble based on patient's age to complete this topic MENINGOCOCCAL (Group B) VACCINE SHARED DECISION-MAKING Aged Out No longer eligible based on patient's age to complete this topic MENINGOCOCCAL GROUPS A/C/Y/W VACCINE Aged Out No longer eligible b ased on patient's age to complete this topic PNEUMOCOCCAL VACCINE Aged Out No long er eligible based on patient's age to complete this topic Insurance SELF PAY NO INSURANCE Member Subscriber Plan / Payer (Ef fective for All Dates) Name:Kenia Blancas Member ID:Not on file Relation to Subscriber:Self Name:Kenia Blancas Subscriber ID:Not on file Payer ID:Not on file Group ID:Not on file Type:Self Pay Address: [place], [place] Care Teams Carton Forming Machine Helper Relationship Specialty Start Date End Date Mirian Wiggins APRN-MICHAEL [address] [address] PCP - General 08/22/20
[2025-05-12 12:50] LABS: Hematocrit 40.7 % (37.0-47.0); Hemoglobin 13.3 g/dL (12.0-15.0); Immature Granulocyte Percent A 0.2 % (0-0.5); Lymphocytes Absolute Auto 1.59 K/mm3 (0.9-3.2); Mean Corpuscular HGB Conc 32.7 g/dl (32-36); Mean Corpuscular Hemoglobin 30.6 pg (26-34); Mean Corpuscular Volume 93.6 fl (80-100); Nucleated Red Blood Cells Absolute Auto 0.000 K/mm3 (0.0-0.012); Nucleated Red Blood Cells Perc 0.0 % (0.0-0.2); Platelet Count Result 294 k/mm3 (150-375); Red Blood Count 4.35 M/mm3 (4.2-5.4); White Blood Count 5.1 K/mm3 (4.5-10.0)
[2025-05-12 12:57] LABS: Alanine Aminotransferase 22 U/L (6-35); Albumin Level 4.2 g/dL (3.5-5.1); Alkaline Phosphatase 44 U/L (38-126); Anion Gap 8 mmol/L (4-12); Aspartate Amino Transferase 35 U/L (14-36); Bilirubin,Total 0.5 mg/dL (0.2-1.3); Blood Urea Nitrogen 14 mg/dL (7-17); CRP < 0.5 mg/dL (<1.0); Calcium 9.4 mg/dL (8.4-10.2); Carbon Dioxide 25 mmol/L (22-30); Chloride 105 mmol/L (98-107); Cholesterol 193 mg/dL (0-200); Estimated Glomerular Filt Rate > 60; Glucose 88 mg/dL (65-110); HDL Direct 63 mg/dL; Potassium 4.3 mmol/L (3.4-5.0); Sodium 138 mmol/L (137-145); Total Protein 7.2 g/dL (6.3-8.2); Triglycerides 67 mg/dL (<150)
[2025-05-12 13:24] LABS: Thyroid Stimulating Hormone 1.510 uIU/mL (0.465-4.680)
[2025-05-12 13:43] LABS: Vitamin B12 641.0 pg/mL (239-931)
[2025-05-12 13:46] LABS: Free T3 3.52 pg/mL (2.32-6.09); Free T4 Free Thyroxine 1.03 ng/dL (0.78-2.19)
[2025-05-12 13:58] LABS: Hemoglobin A1C 5.0 % (<5.7)
[2025-05-15 03:53] LABS: Insulin Level Total. 7.1 uIU/mL
== END 2025-05-12 09:38 | disposition home or self-care (01) ==
LOC: ANHGOSHLAB 09:38
PROVIDERS: PCP Internal Medicine; Visit Provider Clinical Nurse Specialist
DX: Z13.228 Encounter for screening for other metabolic disorders (principal); E55.9 Vitamin D deficiency, unspecified; Z13.220 Encounter for screening for lipoid disorders; F41.9 Anxiety disorder, unspecified; R74.01 Elevation of levels of liver transaminase levels; M35.3 Polymyalgia rheumatica; R53.83 Other fatigue; R42 Dizziness and giddiness; R76.8 Other specified abnormal immunological findings in serum; R14.0 Abdominal distension (gaseous); K90.0 Celiac disease; R73.01 Impaired fasting glucose
CPT/HCPCS: 36415; 80053; 80061; 82306; 82607; 83036; 83525; 84439; 84443; 84481; 85025; 86140

== ENCOUNTER 2025-08-27 09:13 | Outpatient (CLI) | payer OTHER, SELFPAY ==
[2025-08-27 10:04] LABS: Iron 147 ug/dL (37-170)
[2025-08-27 10:14] LABS: Percent Iron Saturation 58 % (20-50)
[2025-08-27 10:45] LABS: Ferritin 15.60 ng/mL (6.24-137)
== END 2025-08-27 09:14 | disposition home or self-care (01) ==
LOC: ANHLAB 09:15
PROVIDERS: PCP Clinical Nurse Specialist; Visit Provider Nurse Practitioner
DX: K90.0 Celiac disease (principal)
CPT/HCPCS: 36415; 82728; 83540; 83550